=== PATIENT | female | born 2000 | race African-American/Black ===

== ENCOUNTER 2019-11-27 13:00 | Outpatient (RCR) | payer OTHER, SELFPAY ==
--- NOTE | 2019-12-01 11:05 | PC.NURSE ---
Patient showed up to the morning meeting from [id number] however did not show up the the first group at 0930. Spoke to patient who stated she called [place] and Suzy however she did not leave a message. Patient stated something unexpected came up last night and did not get home until 0630 this am. Patient did not elaborate however patient dozed off before the first group thus why she did not attend. Stated she realizes that she is too tired today and needs to sleep however stated she really wants to attend [facility] and that she is sorry. She plans on starting tomorrow.
== END 2019-11-27 23:55 | disposition admitted as inpatient to this hospital (09) ==
LOC: HO.PHPA 13:00
PROVIDERS: Visit Provider Psychiatry & Neurology Psychiatry
DX: F32.9 Major depressive disorder, single episode, unspecified (principal)

== ENCOUNTER 2020-03-08 09:30 | Outpatient (RCR) | payer OTHER, SELFPAY ==
--- NOTE | 2020-03-02 11:29 | HO.PS.ADMBH ---
HPI Chief Complaint: depression Sources of Information: patient interviewed, chart reviewed and crisis/core team assessment reviewed HPI Narrative: Ms. Best is a 19 year-old with hx of trauma, depression, mood dysregulation who started PHP due to increase depression, feeling of hopelessness/ helplessness and intermittent suicidal ideation without a plan. She has not been in treatment for about one year. Today, Ms. Best reports recent losses in her life including best friend who in Jan, long life struggles with biological mother who struggles with addiction. She endorses periods of time of increase spending, reckless behaviors (mostly related with people she engages with). She reports hypersomnia when feeling depressed. She denies any plan or intent to hurt herself. She denies hx of VH/AH. She reports intermittent suicidal ideation but denies any plan or intent to hurt herself. [facility] Family History: mother with substance use Social History: Pt placed in several foster homes. She is currently attending [employer] and lives with roommates. Substance History: None Trauma History: multiple foster placements Meds/Allergies Allergies Allergies Allergy/AdvReac Type Severity Reaction Status Date / Time paroxetine [Paxil] Allergy Unknown Verified 03/13/19 00:00 Mental Status Exam Mental Status Exam Narrative: Appearance:Casually groomed, fair hygiene, in NAD. Behavior: calm, cooperative Psychomotor: no agitation or retardation noted Speech: clear, normal rate/rhythm, spontaneous TP:linear TC: no signs of psychosis, looking forward to continue treatment, depressed but not actively suicidal Mood: anxious and depressed Affect: flat but brightens at times Insight/judgment: fair x 2. Memory/cognition: alert, oriented x 3. Grossly intact to conversational testing. Assessment & Plan Assessment & Plan (1) MDD (major depressive disorder), recurrent episode, moderate: Status: Acute Code(s): F33.1 - Major depressive disorder, recurrent, moderate Assessment and Plan: 1. Admit to PHP. 2. Start Venlafaxine XR 37.5mg po daily Patient educated on: diagnosis, medication risk/benefits and therapeutic strategies Informed Consent: understands Reason for continued partial hosp. stay Substantial Risk for: harm to self Certification I certify that partial hospital treatment is medically necessary due to the symptoms and problems resulting from the patient's mental illness and the failure to treat the patient at the partial hospital level of care would likely result in the patient requiring inpatient psychiatric care which could not be prevented at a less intensive level of care. Telehealth Telehealth Location of provider rendering services: practice address Location of patient: address on file Patient Identification confirmed using: Name, : Yes Telehealth method: video Patient verbally consented to treatment: Yes Patient verbally consented to billing insurance company: Yes Patient informed of any privacy concerns related to visit: Yes Time spent with patient (mins): 30
--- NOTE | 2020-03-08 14:31 | PC.NURSE ---
With pt's permission, I called and put in a referral for pt to have a therapist and med provider at [facility]. I spoke to Pooja, who said she'll work on the referral and call back with appt times.
--- NOTE | 2020-03-10 09:43 | PC.NURSE ---
Pt called out for treatment yesterday, stating she didn't feel well. I spoke to her and she said she is struggling with committing to group treatment, as she doesn't find groups so helpful. She reported deep reluctance to join [facility] from the start, and said she did so for her adoption social worker. She expressed ambivalence around returning to program today, and said she would call after thinking about if she wants to continue. Since she did not call, I called and spoke to her this morning. She said she decided to discontinue treatment but thanked me and other staff for the help. I told her I'd call when [facility] gives me aftercare appts, as referral has been placed. Pt also reported feeling stable emotionally overall, and safe. She sounded in good spirits.
--- NOTE | 2020-03-10 10:06 | PC.NURSE ---
I called [facility] to inquire about aftercare referral. She has been scheduled for an intake via phone on 03/14/20 at 1pm with Ana Pruitt. She has a med management evaluation (1 hour video/telehealth appt) on 04/06/20 at 2pm with Lisseth Rodriguez. Her medication management followup appt, also with Lisseth Rodriguez. (video/ telehealth) is on 05/04/20 at 3pm.
--- NOTE | 2020-03-10 14:56 | PC.NURSE ---
I called and spoke to pt. I informed her of her aftercare appointments at [facility]. She said she would call her PCP to try to get the psychiatric medication refilled that we prescribed for her.
== END 2020-03-08 23:55 | disposition left against medical advice (07) ==
LOC: HO.PHPA 09:30
PROVIDERS: Visit Provider Psychiatry & Neurology Psychiatry
DX: F33.1 Major depressive disorder, recurrent, moderate (principal); F43.10 Post-traumatic stress disorder, unspecified
CPT/HCPCS: 90791; 90792; 90853